=== PATIENT | female | born 1995 | race Caucasian/White ===

== ENCOUNTER 2018-09-15 05:54 | Day surgery (SDC) | payer SELFPAY ==
[2018-09-09 16:15] LABS: Hematocrit 38.3 % (37-47); Mean Corp Hgb Conc 33.9 g/gl (32-36); Mean Corpuscular Hgb 28.8 pg (27.0-32.0); Mean Corpuscular Volume 84.9 fL (81-99); Mean Platelet Vol. 9.2 fl (6.2-12.0); Platelet Count 350 K/mm3 (150-450); RBC Distribution Width CV 12.6 % (11.6-14.6); RBC Distribution Width SD 38.6 fl (35.1-43.9); Red Blood Count 4.51 M/mm3 (4.2-5.4); Scan Indicated on CBC? Y/N NO; White Blood Count 7.1 K/mm3 (4.4-11.0)
[2018-09-09 16:30] LABS: International Normalized Ratio 1.1; Partial Thromboplast Time 32.1 Seconds (24.1-36.2); Prothrombin Time (Protime)PT. 13.8 SECONDS (11.7-14.9)
--- NOTE | 2018-09-13 19:29 | PCM.HPOB.BLA ---
History and Physical Date of Admission: 09/15/18 PREOP HISTORY AND PHYSICAL Date: 09/09/2018 Name: BOSTON QUEEN Age: 23 Date of : 1995 HISTORY OF PRESENT ILLNESS: On 09/09/2018, Boston Queen, a 23 year old female 0 0 0 0 0, presented for: -- Pre-Op -- Boston is being seen for pre op visit. Pt will be having Diagnostic Laparoscopy with Treatment of Endometriosis on 09/15/18. Medications and allergies are up to date. Consents signed and information gone over. AM as above. [facility] ALLERGIES: NKDA MEDICATIONS HISTORY: Current medications prescribed by our practice are: 1. ibuprofen 800 mg tablet, Take 1 tablet PO tid prn 2 days before period through cycle day 3 REVIEW OF SYSTEMS: GENERAL - Denies fever, or chills SKIN - Denies skin changes EYES - Denies visual changes EARS - Denies difficulty hearing NOSE - Denies nasal congestion or bleeding MOUTH - Denies sore throat or difficulty swallowing NECK - Denies pain or swelling RESPIRATORY - Denies shortness of breath or wheezing CARDIOVASCULAR - Denies palpitations or chest pain GASTROINTESTINAL - Denies nausea, vomiting, diarrhea, constipation GENITOURINARY - Denies dysuria, frequency of urination, incontinence of urine MUSCULOSKELETAL - Denies joint or muscle pain NEUROLOGICAL - Denies localized numbness or weakness PSYCHIATRIC - Denies depression or anxiety ENDOCRINE - Denies heat or cold intolerance, weight loss or gain HEMATO-IMMUNOLOGIC - Denies excesive bleeding with cuts SURGICAL HISTORY: 1. 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 Children Name(s) - fosters Control - None-attempting pregancy PHYSICAL EXAMINATION BP- 90/62 Sitting, Right arm, regular cuff Temp- 98.3 Taken Orally Weight- 122.60 lbs Height- 62.25 inch BMI:22.29 CONSTITUTIONAL - NAD, well nourished, and well developed SKIN - No rash, lesions, or ulcers HEENT - Normocephalic, PERRLA, EOMI LYMPH NODES - Palpation of lymph nodes in neck and groins within normal limits LUNGS - CTA x2 without wheezes, crackles or rales CARDIAC - Regular rate and rhythm without rubs, murmurs, or gallops ABDOMEN - Without hepatosplenomegaly, distention, masses, rebound, or guarding; normal bowel sounds; no hernias EXTREMITIES - No edema or calf tenderness NEUROLOGICAL - normal gait, normal balance, normal motor PSYCHIATRIC - A and O to time, place, person, mood and affect ASSESSMENT: PLAN BY DIAGNOSIS: 1. Deep Dyspareunia, Dysmenorrhea, Unspecified and Pelvic And Perineal Pain No sx improvement with AIP and sx worsening Plan for diagnostic laparoscopy to r/o and treat endometriosis as indicated Procedural risks, benefits, indications, alternatives reviewed - including risk for complications requiring laparotomy or additional surgery. Pt is ok with laparotomy to treat advanced endometriosis if indicated Pt desires to proceed, consents signed NPO @ [facility] prior to procedure, preop packet and body wash instructions reviewed and given Preop labs pending
[2018-09-15] VITALS (8 sets, daily range): BP systolic 106–127; BP diastolic 61–82; PULSE 74–87; RESP 16; TEMP 36.3–37.1; O2SAT 99–100; BMI 22.0
[2018-09-15 06:22] LABS: Internal QC Validated? YES +Cl - CLEAR BKGD; Pregnancy, Urine Negative Negative
--- NOTE | 2018-09-15 07:15 | MISC_PTH ---
PATIENT: BOSTON NAVA LOC: [facility] [place] U#:[id number] AGE/SX: 23/F ROOM: RE09/15/[address]: Dr. Lucia Virk MD : 1995 BED: DIS: 09/15/2018 SPEC #: [id number] RECD: 09/15/18 11:58 STATUS: GINO VIOLET #: [id number] NICKY: 09/15/18 07:[address]: Lucia Rojo DEPT: SURGICAL PATHOLOGY RECD BY: Kike Shaw ENTERED: 09/15/18 13:24 [facility] Zahira Primary Care Phys Tissues: A - Peritoneal cavity, NOS B - Peritoneal cavity, NOS Procedures: Surgery Specimen Level IV HEADER OPERATION: Diagnostic laparoscopy, treatment of endometriosis PRE-OP DIAGNOSIS: Dysmenorrhea, deep dyspareunia, pelvic and perineal pain TISSUE SUBMITTED: A - Left uterosacral peritoneum biopsy, B - Right uterosacral peritoneum biopsy MICROSCOPIC DIAGNOSIS A. Left uterosacral peritoneum, biopsy: Consistent with endometriosis. B. Right uterosacral peritoneum, biopsy: Consistent with endometriosis. AM:david 09/16/18 MICROSCOPIC DESCRIPTION Slides are reviewed. GROSS DESCRIPTION A - Received in fixative is one container labeled with the patient's name and designated left uterosacral peritoneum biopsy. The specimen consists of three irregular fragments of red-sanchez soft tissue that in aggregate measure 2 x 1.7 x 0.3 cm. The specimen is totally submitted in one cassette. B - Received in fixative is one container labeled with the patient's name and designated right uterosacral peritoneum biopsy. The specimen consists of a single irregular fragment of sanchez tissue measuring 0.5 x 0.3 x 0.1 cm. The specimen is totally submitted in one cassette. / AM:david 09/15/18 TC:5 CPT: 42178 x2
[2018-09-15] MEDS: Lubricating Jelly 60 GM Tube 30 GM TOPICAL (08:00)
[2018-09-15] MEDS: Bupivacaine Mpf 0.5% 30 ML VIAL (09:30)
--- NOTE | 2018-09-15 09:35 | PCM.OPRPT ---
Problem List (1) Dysmenorrhea Status: Acute (2) Endometriosis determined by laparoscopy Status: Acute Report of Operation Date of Procedure: 09/15/18 Pre-Operative Diagnosis: Dysmenorrhea Post-Operative Diagnosis: Dysmenorrhea, endometriosis Surgery/Procedure Performed:: Diagnostic laparoscopy, adhesiolysis, surgical treatment of endometriosis, chromotubation Description of Surgical Findings:: Peritoneal endometriosis Left colonic-adnexal filmy adhesions Bilateral tubal patency speech and language specialist: Ashly De Leon Type of Anesthesia:: General, Local Anesthesiologist: Silas De Jesus - Александр Hoskins Specimen's removed: 1. left uterosacral and ovarian fossa peritoneum. 2. right uterosacral peritoneum Estimated Blood Loss (mL): 50 Fluids Replaced: 1200 ml Description of Procedure: Indications: Kathy is a 23-year-old nulligravida with history of chronically worsening dysmenorrhea requiring ER visits. She also has history of infertility, deep dyspareunia and exam findings concerning for endometriosis. Following counseling she opted to proceed with diagnostic laparoscopy and surgical treatment of endometriosis as indicated. Risks, benefits, indications, and alternatives of procedure were reviewed and patient desired to proceed. She also inquired about chromotubation. I reviewed with her HSG is a gold standard for determining tubal patency however chromotubation may be helpful in evaluation. Procedural risks including infection were reviewed. Her UPT was negative and she desired to proceed with this as well. Seizure: The patient was taken to the operating room and Center was performed. She is placed in the dorsal supine position and induced under general anesthesia and intubated. She is then placed into dorsal lithotomy and examination under anesthesia was performed. The arms were tucked at her sides and the abdomen and perineum were prepped and draped in sterile fashion. Straight catheterization of the bladder was performed. The patient was placed into high lithotomy a weighted speculum was placed into the vagina and cervix graft to the anterior cervical lip using a single-tooth tenaculum. The uterus sounded to 3 inches. The ZUMI uterine manipulator was placed and secured in the tenaculum was removed. The patient was then placed into low lithotomy and attention turned to the abdomen. An injection of half percent bupivacaine was performed at all trocar sites mentioned in the procedure starting with the inferior umbilicus. Incision was made and Veress needle placed with successful hanging drop test and no aspirate. Abdominal entry pressure was 3 mmHg. The abdomen was insufflated to 15 mmHg. A 5 mm trocar was placed under laparoscopic guidance at the umbilicus. The placement was placed into Trendelenburg. Additional incisions and ports were placed suprapubically and in the right and left lower quadrants under transillumination. Abdominal and pelvic inspection was performed demonstrating superficial white lesions in the left uterosacral peritoneum and left ovarian fossa. There was also lesion at the right uterosacral ligament peritoneum. Left filmy sigmoid adhesions to the the distal left tube and infundibulopelvic ligament were lysed bluntly and sharply to allow further mobility of the bowel and adnexa are visualization. The left uterosacral peritoneum was grasped and incised and using blunt and sharp dissection was from the underlying alveolar tissue, the ureter was well visualized. This peritoneum was then resected. The same was done along the left ovarian fossa to remove the endometriotic peritoneal lesions. Attention was then turned to the right pelvis. And in similar fashion the peritoneum was stripped in the area of concern with the endometriotic lesion. The right ureter was noted before, during and after peritoneal excision. The excisional sites were irrigated confirming good hemostasis irrigation and suctioned. Attention was then turned to the perineum to proceed with chromotubation. Chromotubation was performed using 3 cc of methylene blue (10 cc of methylene blue diluted and 50 cc of normal saline) under laparoscopic guidance with evidence of bilateral tubal patency. The pelvis was then copiously irrigated and suctioned. Good hemostasis was maintained. The abdomen was desufflated the patient was given several deep breaths for further desufflation. Trochars were removed from the abdomen. The skin was closed using 4-0 Monocryl and Steri-Strips and OpSite dressing were placed over the incisional wounds. Additional bupivacaine was administered locally at the incisions for a total of 30 cc. The patient was placed into dorsal supine position, awakened, extubated and transferred to the recovery room without complication. Sponge, needle counts were correct x2. The patient tolerated the procedure well. - Complications None - Admit VTE Documentation VTE Present on Admission: No VTE Mechan Device Prophylaxis: SCD's VTE Pharm Prophylaxis ordered?: No
[2018-09-15] MEDS: Doxycycline 100 MG CAPSULE 200 MG PO (09:59)
--- NOTE | 2018-09-15 09:59 | DCINST_ITS ---
- Discharge Diagnoses Current Active Problems: Current Active and Chronic Problems Dysmenorrhea (Acute) Endometriosis determined by laparoscopy (Acute) Reason(s) for Visit for Discharge Instructions: Laparoscopy for endometriosis You will use the following diet at home:: No restrictions Your food should be the consistency of: Regular Discharge Activity: Return to Normal Activity, May not drive while taking narcotic pain medications., May Shower, - - No tub bath for 1-2 weeks May resume sexual activity in: 4 weeks Lifting Restrictions: 10 lb Call your doctor if your incision/area has: Continuous Slow Oozing, Sudden Increased Bleeding, Increased Pain/ Swelling, Increased Redness Call your doctor if you observe: Fever of 101 or Higher, Inability to urinate, Inability to have a bowel movement, Using more than one pad per hour, Shortness of breath, Chest pain, Calf discomfort, Uncontrolled pain Suture Line Care: Avoid Pulling/Pushing Cleanse incision/area with: Soap & Water Additional Dressing/Incision Instructions:: Remove top dressing in 24 hours; remove steristrip (incision tapes) on Wednesday Allergies/Adverse Reactions: Allergies No Known Allergies Allergy (Verified 09/08/18 09:01) Medications to take at Discharge Docusate Sodium [Colace] 100 mg PO BID PRN PRN #30 capsule 09/15/18 Ibuprofen 600 mg PO TID PRN #30 tablet 09/15/18 Oxycodone [Oxyir] 5 mg PO Q6H PRN PRN 7 Days #20 tablet 09/15/18 The following prescriptions were given: Oxycodone [Oxyir] 5 mg PO Q6H PRN PRN 7 Days #20 tablet PRN Reason: Severe Pain (6-10/10) Docusate Sodium [Colace] 100 mg PO BID PRN PRN #30 capsule PRN Reason: Constipation Ibuprofen 600 mg PO TID PRN #30 tablet PRN Reason: Pain Primary Care Physician: Care Physician,No Primary [Primary Care Provider] - Test Results: Test results from this visit will be discussed in further detail at your follow- up appointment, if applicable. Please Follow Up With: Lucia Garcia MD When: 2 weeks
[2018-09-15] MEDS: Ibuprofen 600 MG Tablet PO (12:45)
== END 2018-09-15 13:46 | disposition home or self-care (01) ==
LOC: SDC 05:56 → AC 05:59
PROVIDERS: Anesthesiology; Referring Provider Obstetrics & Gynecology; Visit Provider Obstetrics & Gynecology
PROC: (CPT 49320; principal; 2018-09-15 07:00)
DX: N80.3 Endometriosis of pelvic peritoneum (principal); N94.12 Deep dyspareunia; N94.6 Dysmenorrhea, unspecified
CPT/HCPCS: 58350; 58662; 36415; 81025; 85027; 85610; 85730; 86850; 86900; 88305; J7120; J2405; Q9968

== ENCOUNTER → 2019-05-18 16:20 | Outpatient (CLI) | payer SELFPAY ==
[2018-09-15 06:18] VITALS: BMI 22.0
[2019-05-23 20:34] LABS: HPV Reflexed? NOT INDICATED
== END ==
PROVIDERS: Referring Provider Obstetrics & Gynecology; Visit Provider Obstetrics & Gynecology
DX: Z12.4 Encounter for screening for malignant neoplasm of cervix (principal)
CPT/HCPCS: 88175; G0145

== ENCOUNTER 2021-08-14 08:59 | Outpatient (CLI) | payer SELFPAY ==
[2021-08-14 09:39] LABS: Glucose 75GTT - Fasting 91 mg/dL (70-99)
[2021-08-14 09:50] LABS: Insulin 75GTT - Fasting 3.6 mU/L (2.6-37.6)
[2021-08-14 09:52] LABS: Prolactin 4.8 ng/mL
[2021-08-14 10:37] LABS: Glucose 75GTT - 30 minutes 133 mg/dL (100-160)
[2021-08-14 10:39] LABS: Glucose 75GTT - 60 minutes 110 mg/dL (100-160)
[2021-08-14 10:44] LABS: Insulin 75GTT - 30 MIN 65.8 mU/L (Not Estab.)
[2021-08-14 10:44] LABS: Insulin 75GTT - 60 min 43.2 mU/L (Not Estab)
[2021-08-14 11:50] LABS: Glucose 75GTT - 120 minutes 110 mg/dL (70-140)
[2021-08-14 11:58] LABS: Insulin 75GTT - 120 min 22.8 mU/L (Not Estab.)
== END 2021-08-14 23:59 | disposition home or self-care (01) ==
LOC: WOBLAB 08:59
PROVIDERS: PCP Internal Medicine; Referring Provider Obstetrics & Gynecology; Visit Provider Obstetrics & Gynecology
DX: E28.8 Other ovarian dysfunction (principal)
CPT/HCPCS: 36415; 82951; 82952; 83525; 84146